=== PATIENT | female | born 1985 | race Caucasian/White ===

== ENCOUNTER → 2018-02-04 | Outpatient (CLI) | payer OTHER ==
[~2018-02-04] MED LIST: ACET325 PO; ALBIPROI INH; CEPH500 PO; CLAR500 PO; IBUP600 PO; MEDR150I IM; NEOPOLHCSU OT; PROCODE120 PO; SULTRIDS PO; TRAM50 PO
== END ==
LOC: LAB SHORT 13:52 → LAB 13:52
DX: Z11.3 Encounter for screening for infections with a predominantly sexual mode of transmission (principal)
CPT/HCPCS: 87070; 87205

== ENCOUNTER → 2019-05-13 | Outpatient (CLI) | payer OTHER ==
[2019-05-16 01:06] LABS: CHLAMYDIA TRACHOMATIS, NAA Negative (Negative); NEISSERIA GONORRHOEAE, NAA Negative (Negative)
== END ==
LOC: LAB SHORT 12:48 → LAB 12:48
PROVIDERS: Registered Nurse Community Health
DX: Z20.2 Contact with and (suspected) exposure to infections with a predominantly sexual mode of transmission (principal)
CPT/HCPCS: 87491; 87591